=== PATIENT | female | born 1960 | race Caucasian/White ===

== ENCOUNTER → 2016-08-07 | Outpatient (CLI) | payer OTHER ==
--- NOTE | 2016-08-07 16:57 | DX ---
Chest, PA and Lateral Upright Views, at 4:40 p.m. Clinical History: 56-year-old female with a fever and a suspected pneumonia. Comparison Study: Dictated report of a chest radiograph from [facility], dated November 14, 2015. The actual images have since been purged. Findings: The cardiac size is within normal limits. There is moderate central perihilar bronchial wal l thickening. There is some more focal alveolar consolidation in the anterior and posterior lung base (possibly at both the right and left lower lobes). There is no pleural effusion, or pneumothorax. Th e trachea is midline. There are some degenerative features of the spine. Impression: Perihilar bronchial wall thickening, with suspected lower lobe infiltrates.
== END ==
LOC: GIMAGING 16:38
PROVIDERS: ATTEND Nurse Practitioner
DX: R91.8 Other nonspecific abnormal finding of lung field (principal); R50.9 Fever, unspecified
CPT/HCPCS: 71020-PO